=== PATIENT | female | born 1940 ===

== ENCOUNTER 2025-05-06 12:05 | Emergency (ER) | payer MEDICARE, OTHER ==
[2025-05-06] MEDS ORDERED: Sodium Chloride 0.9% 10 ML Syringe FLUSH PRN (12:13)
[2025-05-06] MEDS: Ondansetron 4 MG/2 ML SDV IVPUSH ONE (12:35)
[2025-05-06] MEDS: Ketorolac 30 MG/ML SDV IVPUSH ONE (12:35)
[2025-05-06 12:37] LABS: BASOPHILS PERCENT AUTO 0.3 % (0.0-1.0); EOSINOPHILS PERCENT AUTO 0.9 % (1.0-3.0); LYMPHOCYTES PERCENT AUTO 18.0 % (20.5-50.1); MONOCYTES PERCENT AUTO 8.0 % (2-8); NEUTROPHILS PERCENT AUTO 72.8 % (42.2-75.2); PLATELET COUNT,PLT 197 10^3/uL (150-450); RED BLOOD CELL COUNT 3.40 10^6/uL (4.2-5.4); WHITE BLOOD CELL COUNT,WBC 7.5 10^3/uL (5.0-10.0)
[2025-05-06 12:51] LABS: APPEARANCE,URINE SLIGHTLY CLOUDY (CLEAR); GLUCOSE,URINE NEGATIVE (NEGATIVE); OCCULT BLOOD,URINE TRACE-INTACT (NEGATIVE)
[2025-05-06 12:51] LABS: INR 1.0 (0.9-1.2)
[2025-05-06 12:59] LABS: A/G RATIO 1.4; ALANINE AMINOTRANSFERASE,ALT 36 U/L (14-59); ASPARTATE AMNIOTRANSFERASE,AST 23 U/L (15-37); BILIRUBIN TOTAL 0.6 mg/dL (0.2-1.0); BLOOD UREA NITROGEN,BUN 27 mg/dL (7-18); CARBON DIOXIDE,CO2 30 mmol/L (21-32); CHLORIDE,CL 101 mmol/L (98-107); CREATININE 1.15 mg/dL (0.55-1.02); EST CRCL DRUG DOSING (CG) 36.68 mL/min; ESTIMATED GFR 48 mL/min (>=60); GLUCOSE RANDOM 109 mg/dL (70-99); POTASSIUM,K 4.4 mmol/L (3.5-5.1); PROTEIN TOTAL,TP 7.1 g/dL (6.4-8.2); SODIUM,NA 141 mmol/L (136-145)
[2025-05-06 13:02] LABS: EPITHELIAL CELLS,URINE FEW /HPF (NOT SEEN)
[2025-05-06] MEDS: Take Home: Ciprofloxacin HCl 500 MG, 6 Tab Pack PO ONE (15:00)
== END 2025-05-06 14:58 | disposition home or self-care (01) ==
LOC: DL.ED 12:05
DX: N30.01 Acute cystitis with hematuria (principal)
CPT/HCPCS: 36415; 70450; 80053; 81001; 83735; 84484; 85025; 85610; 86140; 87086; 93005; 93010; 96361; 96374; 96375; 99284; 99285-25; A9270-GY; J0696; J1885; J2405; J7030